=== PATIENT | female | born 1940 | race Caucasian/White ===

== ENCOUNTER 2023-12-23 15:06 | Inpatient (IN) | payer MEDICARE, OTHER ==
[~2023-12-23] VITALS: Ht 170.2 cm; Wt 59.0 kg
[~2023-12-23 15:06] MED LIST: DOCU100C36 PO; GABA-532 PO; HYDR-4384 PO; LISI-768 PO
[2023-12-23 15:49] LABS: BASOPHILS % (AUTO) 0.4 % (0.0-2.0); EOSINOPHILS # (AUTO) 0.2 K/uL (0.0-0.7); HEMATOCRIT 35 % (33-45); HEMOGLOBIN 11.5 g/dL (11.5-14.8); LYMPHOCYTES # (AUTO) 0.9 K/uL (0.8-4.8); LYMPHOCYTES % (AUTO) 10.8 % (20.0-44.0); MEAN CORPUSCULAR HEMOGLOBIN 31 PG (26.0-33.0); MEAN CORPUSCULAR HGB CONC 33 g/dl (31.0-36.0); MEAN CORPUSCULAR VOLUME 93 fL (82-100); MONOCYTES # (AUTO) 0.5 K/uL (0.1-1.30); MONOCYTES % (AUTO) 6.2 % (2.0-12.0); NEUTROPHILS # (AUTO) 6.5 K/uL (1.8-8.9); NEUTROPHILS % (AUTO) 80.6 % (43.0-81.0); PLATELET COUNT (AUTO) 250 K/uL (150-450); RED BLOOD CELL COUNT(AUTO) 3.75 MIL/uL (4.0-5.2); RED CELL DISTRIBUTION WIDTH 14.1 % (11.5-15.0)
[2023-12-23] MEDS: IV NS 0.9% 1,000 ML BAG IV ONE (15:49)
[2023-12-23] MEDS: LEVETIRACETAM (500MG) 500 MG in IV NS 0.9% 100 ML IV ONE (15:50)
[2023-12-23 15:58] LABS: CALCIUM, SERUM 9.5 mg/dL (8.5-10.1); CARBON DIOXIDE 16 mmol/L (21-32); CHLORIDE 99 mmol/L (98-107); CREATININE 1.6 mg/dL (0.6-1.3); GLUCOSE 159 mg/dL (74-106); POTASSIUM 4.5 mmol/L (3.5-5.1); SODIUM SERUM 131 mmol/L (136-145); UREA NITROGEN, BLOOD 29 mg/dL (7-18)
[2023-12-23] MEDS ORDERED: AMIN30LI2 PO (16:10)
[2023-12-23] MEDS ORDERED: CYAN-51 PO (16:10)
[2023-12-23] MEDS ORDERED: APIX2.5T PO (16:10)
[2023-12-23] MEDS ORDERED: MAGN400O6 PO (16:10)
[2023-12-23] MEDS ORDERED: MELA3TAB41 PO (16:10)
[2023-12-23] MEDS ORDERED: PANT40TA2 PO (16:10)
[2023-12-23] MEDS ORDERED: MEMA5TAB42 PO ×2 (16:10)
[2023-12-23] MEDS ORDERED: MEMA10TA56 PO (16:10)
[2023-12-23] MEDS ORDERED: LEVE100S PO (16:10)
[2023-12-23] MEDS ORDERED: ATOR10TA PO (16:10)
[2023-12-23] MEDS ORDERED: CHOL500062 PO (16:10)
[2023-12-23] MEDS ORDERED: PARO10TA86 PO (16:10)
[2023-12-23] MEDS ORDERED: QUET25TA PO (16:10)
[2023-12-23] MEDS ORDERED: METO25TA4 PO (16:10)
[2023-12-23] MEDS ORDERED: ACET-868 PO (16:10)
[2023-12-23 17:53] VITALS: BP 126/58; TEMP 98.4; O2SAT 95
[2023-12-23] MEDS ORDERED: ACETAMINOPHEN 325 MG TABLET PO PRN ×2 (18:00)
[2023-12-23] MEDS ORDERED: Z GUARD REMEDY 4 OZ OINT TP PRN (18:00)
[2023-12-23] MEDS ORDERED: MAG HYDROX/AL HYDROX/SIMETH 30 ML UDC PO PRN (18:00)
[2023-12-23] MEDS ORDERED: ONDANSETRON HCL/PF 4 MG/2 ML VIAL IVP PRN (18:00)
[2023-12-23] MEDS ORDERED: MAGNESIUM HYDROXIDE 30 ML UDC PO PRN (18:00)
[2023-12-23 18:13] LABS: APPEARANCE,URINE Clear (CLEAR); BILIRUBIN,URINE Negative (NEGATIVE); BLOOD, URINE Small Ery/uL (NEGATIVE); COLOR,URINE Other (YELLOW); KETONES,URINE Negative (NEGATIVE); LEUKOCYTE ESTERASE ,URINE Negative (NEGATIVE); NITRITE, URINE Negative (NEGATIVE); PH,URINE 5.5 (5.0-8.0); PROTEIN,URINE Trace mg/dl (NEGATIVE); UGLUCOSE Negative (NEGATIVE); UROBILINOGEN,URINE 0.2 EU/dL (0.2)
[2023-12-23 20:00] VITALS: BP 96/53; TEMP 98.1; O2SAT 93
[2023-12-23] MEDS: IV NS 0.9% 1,000 ML IV PRN (20:58)
[2023-12-23 21:12] LABS: ADD URINE CULTURE NO; BACTERIA,URINE Rare /HPF (None Seen); SQUAMOUS EPITHELIAL CELL,UR Few /HPF (None Seen); WBC,URINE 0-2 /HPF (0-3)
[2023-12-24] VITALS: BP 119/57; TEMP 98.5; O2SAT 97
[2023-12-24 04:00] VITALS: BP 115/52; TEMP 98.3; O2SAT 98
[2023-12-24] MEDS: PANTOPRAZOLE 40 MG TABLET.DR PO SCH (07:30)
[2023-12-24 08:00] VITALS: BP 95/41; TEMP 97.5; O2SAT 100
[2023-12-24 08:19] LABS: BASOPHILS % (AUTO) 0.4 % (0.0-2.0); EOSINOPHILS # (AUTO) 0.1 K/uL (0.0-0.7); EOSINOPHILS % (AUTO) 2.3 % (0.0-6.0); HEMATOCRIT 31 % (33-45); HEMOGLOBIN 10.1 g/dL (11.5-14.8); LYMPHOCYTES # (AUTO) 2.2 K/uL (0.8-4.8); LYMPHOCYTES % (AUTO) 33.4 % (20.0-44.0); MEAN CORPUSCULAR HEMOGLOBIN 30 PG (26.0-33.0); MEAN CORPUSCULAR HGB CONC 33 g/dl (31.0-36.0); MEAN CORPUSCULAR VOLUME 92 fL (82-100); MONOCYTES # (AUTO) 0.7 K/uL (0.1-1.30); NEUTROPHILS # (AUTO) 3.5 K/uL (1.8-8.9); NEUTROPHILS % (AUTO) 53.9 % (43.0-81.0); PLATELET COUNT (AUTO) 203 K/uL (150-450); RED BLOOD CELL COUNT(AUTO) 3.39 MIL/uL (4.0-5.2); WHITE BLOOD COUNT (AUTO) 6.5 K/uL (4.3-11.0)
[2023-12-24 08:25] LABS: CALCIUM, SERUM 8.6 mg/dL (8.5-10.1); CARBON DIOXIDE 23 mmol/L (21-32); CHLORIDE 109 mmol/L (98-107); CREATININE 1.2 mg/dL (0.6-1.3); GLUCOSE 85 mg/dL (74-106); MAGNESIUM 2.2 mg/dL (1.8-2.4); PHOSPHORUS 3.8 mg/dL (2.5-4.9); POTASSIUM 3.9 mmol/L (3.5-5.1); SODIUM SERUM 138 mmol/L (136-145); UREA NITROGEN, BLOOD 21 mg/dL (7-18)
[2023-12-24] MEDS: QUETIAPINE FUMARATE 25 MG TABLET PO SCH (09:00)
[2023-12-24] MEDS: APIXABAN 2.5 MG TABLET PO SCH (09:00)
[2023-12-24] MEDS: MEMANTINE HCL 5 MG TABLET PO SCH (09:00)
[2023-12-24] MEDS: LEVETIRACETAM SOL (5 ML) 100 MG/ML UDC PO SCH (09:00)
[2023-12-24] MEDS: METOPROLOL SUCCINATE 25 MG TAB.SR.24H PO SCH (09:00)
[2023-12-24] MEDS: PAROXETINE HCL 10 MG TABLET PO SCH (09:00)
[2023-12-24 12:00] VITALS: BP 90/69; TEMP 97.2; O2SAT 99
[2023-12-24] MEDS: LEVETIRACETAM (500MG) 500 MG in IV NS 0.9% 100 ML IV SCH (13:02)
[2023-12-24] MEDS ORDERED: IV NS 0.9% 500 ML IV ONE (14:46)
[2023-12-24] MEDS ORDERED: IOHEXOL-300 100 ML VIAL IV ONE (14:46)
[2023-12-24 16:00] VITALS: BP 118/47; TEMP 98.3; O2SAT 100
[2023-12-24 20:00] VITALS: BP 136/62; TEMP 98.1; O2SAT 100
[2023-12-25] VITALS (7 sets, daily range): BP systolic 102–130; BP diastolic 56–62; TEMP 97.5–98.5; O2SAT 90–100
[2023-12-25 09:24] LABS: BASOPHILS % (AUTO) 0.6 % (0.0-2.0); EOSINOPHILS # (AUTO) 0.2 K/uL (0.0-0.7); HEMATOCRIT 36 % (33-45); HEMOGLOBIN 11.4 g/dL (11.5-14.8); LYMPHOCYTES # (AUTO) 1.4 K/uL (0.8-4.8); LYMPHOCYTES % (AUTO) 26.1 % (20.0-44.0); MEAN CORPUSCULAR HEMOGLOBIN 30 PG (26.0-33.0); MEAN CORPUSCULAR HGB CONC 32 g/dl (31.0-36.0); MEAN CORPUSCULAR VOLUME 94 fL (82-100); MONOCYTES # (AUTO) 0.5 K/uL (0.1-1.30); NEUTROPHILS # (AUTO) 3.4 K/uL (1.8-8.9); NEUTROPHILS % (AUTO) 61.3 % (43.0-81.0); PLATELET COUNT (AUTO) 205 K/uL (150-450); RED BLOOD CELL COUNT(AUTO) 3.81 MIL/uL (4.0-5.2); RED CELL DISTRIBUTION WIDTH 14.5 % (11.5-15.0); WHITE BLOOD COUNT (AUTO) 5.5 K/uL (4.3-11.0)
[2023-12-25 09:45] LABS: CALCIUM, SERUM 8.8 mg/dL (8.5-10.1); CARBON DIOXIDE 16 mmol/L (21-32); CHLORIDE 113 mmol/L (98-107); CREATININE 0.9 mg/dL (0.6-1.3); GLUCOSE 68 mg/dL (74-106); POTASSIUM 3.7 mmol/L (3.5-5.1); SODIUM SERUM 143 mmol/L (136-145); UREA NITROGEN, BLOOD 15 mg/dL (7-18)
[2023-12-25] MEDS ORDERED: ALBUTEROL FS 2.5 MG/0.5 ML VIAL.NEB ONE (16:04)
[2023-12-25] MEDS ORDERED: IPRATROPIUM NEB FS 0.5 MG/2.5 ML AMPUL.NEB ONE (16:05)
[2023-12-26] VITALS: BP 125/66; TEMP 97.6; O2SAT 98
[2023-12-26 04:00] VITALS: BP 110/53; TEMP 98.1; O2SAT 99
[2023-12-26 08:15] VITALS: BP 117/61; TEMP 97.9; O2SAT 98
[2023-12-26] MEDS: LEVETIRACETAM SOL (5 ML) 100 MG/ML UDC PO SCH (08:27)
[2023-12-26 12:10] VITALS: BP 127/49; TEMP 97.7; O2SAT 99
== END 2023-12-26 13:51 | DRG 100 ==
LOC: ER 15:15 → TELE1 16:47
PROVIDERS: ADMIT Internal Medicine; ATTEND Internal Medicine
DX: G40.909 Epilepsy, unspecified, not intractable, without status epilepticus (principal); G93.41 Metabolic encephalopathy; N17.0 Acute kidney failure with tubular necrosis; F03.93 Unspecified dementia, unspecified severity, with mood disturbance; F03.92 Unspecified dementia, unspecified severity, with psychotic disturbance; E87.1 Hypo-osmolality and hyponatremia; Z66 Do not resuscitate; Z79.899 Other long term (current) drug therapy; F29 Unspecified psychosis not due to a substance or known physiological condition; Z88.8 Allergy status to other drugs, medicaments and biological substances; Z88.6 Allergy status to analgesic agent; Z91.012 Allergy to eggs; G62.9 Polyneuropathy, unspecified; F32.9 Major depressive disorder, single episode, unspecified; E86.1 Hypovolemia; M89.8X9 Other specified disorders of bone, unspecified site; D64.9 Anemia, unspecified; E86.0 Dehydration; R91.8 Other nonspecific abnormal finding of lung field; E86.9 Volume depletion, unspecified; Z79.01 Long term (current) use of anticoagulants; N18.9 Chronic kidney disease, unspecified; I12.9 Hypertensive chronic kidney disease with stage 1 through stage 4 chronic kidney disease, or unspecified chronic kidney disease
CPT/HCPCS: 36415; 70450-TC; 71045-TC; 71270-TC; 80048-TC; 81001; 83735-TC; 84100-TC; 85025-TC; 87086-TC; 92526; 92611-TC; A4223; G0378; J1953; J7030; J7040; Q9967

== ENCOUNTER 2024-03-03 15:15 | Inpatient (IN) | payer MEDICARE, OTHER ==
[~2024-03-03] VITALS: Ht 152.4 cm; Wt 59.0 kg
[~2024-03-03 15:15] MED LIST changes: +ACET-868 PO; +AMIN30LI2 PO; +APIX2.5T PO; +ATOR10TA PO; +CHOL500062 PO; +CYAN-51 PO; -DOCU100C36 PO; -GABA-532 PO; -HYDR-4384 PO; +LEVE100S PO; -LISI-768 PO; +MAGN400O6 PO; +MELA3TAB41 PO; +MEMA10TA56 PO; +MEMA5TAB42 PO; +METO25TA4 PO; +PANT40TA2 PO; +PARO10TA86 PO; +QUET25TA PO
[2024-03-03] MEDS: ACETAMINOPHEN 650 MG/SUPP.RECT RC ONE (15:30)
[2024-03-03 15:39] LABS: BASOPHILS # (AUTO) 0.1 K/uL (0.0-0.2); BASOPHILS % (AUTO) 1.1 % (0.0-2.0); EOSINOPHILS # (AUTO) 0.1 K/uL (0.0-0.7); EOSINOPHILS % (AUTO) 0.7 % (0.0-6.0); HEMATOCRIT 28 % (33-45); HEMOGLOBIN 8.7 g/dL (11.5-14.8); LYMPHOCYTES # (AUTO) 2.6 K/uL (0.8-4.8); LYMPHOCYTES % (AUTO) 35.6 % (20.0-44.0); MEAN CORPUSCULAR HEMOGLOBIN 29 PG (26.0-33.0); MEAN CORPUSCULAR HGB CONC 32 g/dl (31.0-36.0); MEAN CORPUSCULAR VOLUME 91 fL (82-100); MONOCYTES # (AUTO) 0.9 K/uL (0.1-1.30); MONOCYTES % (AUTO) 12.4 % (2.0-12.0); NEUTROPHILS # (AUTO) 3.7 K/uL (1.8-8.9); NEUTROPHILS % (AUTO) 50.2 % (43.0-81.0); PLATELET COUNT (AUTO) 222 K/uL (150-450); RED BLOOD CELL COUNT(AUTO) 3.02 MIL/uL (4.0-5.2); RED CELL DISTRIBUTION WIDTH 14.4 % (11.5-15.0); WHITE BLOOD COUNT (AUTO) 7.3 K/uL (4.3-11.0)
[2024-03-03] MEDS ORDERED: ATOR20TA PO (15:50)
[2024-03-03] MEDS ORDERED: ASPI-1169 PO (15:50)
[2024-03-03 15:52] LABS: INR 1.07 (0.91-1.10); PARTIAL THROMBOPLASTIN TIME 23.9 SEC (24.3-34.3)
[2024-03-03 16:00] LABS: LACTIC ACID 1.9 mmol/L (0.4-2.0)
[2024-03-03] MEDS: IV NS 0.9% 1,000 ML BAG IV ONE (16:00)
[2024-03-03 16:04] LABS: CALCIUM, SERUM 8.3 mg/dL (8.5-10.1); CARBON DIOXIDE 22 mmol/L (21-32); CHLORIDE 106 mmol/L (98-107); CREATININE 1.4 mg/dL (0.6-1.3); GLUCOSE 125 mg/dL (74-106); POTASSIUM 4.3 mmol/L (3.5-5.1); SODIUM SERUM 136 mmol/L (136-145); UREA NITROGEN, BLOOD 28 mg/dL (7-18)
[2024-03-03 16:09] LABS: ALANINE AMINOTRANSFERASE 31 U/L (12-78); ALBUMIN 2.7 g/dL (3.4-5.0); ALKALINE PHOSPHATASE 45 U/L (46-116); ASPARTATE AMINOTRANSFERASE 35 U/L (15-37); BILIRUBIN,DIRECT 0.1 mg/dL (0.0-0.2); BILIRUBIN,TOTAL 0.2 mg/dL (0.2-1.0); TOTAL PROTEIN, SERUM 6.1 g/dL (6.4-8.2)
[2024-03-03] MEDS: CEFEPIME 1 GM in IV D5W 50 ML IV ONE (16:15)
[2024-03-03] MEDS ORDERED: MAG HYDROX/AL HYDROX/SIMETH 30 ML UDC PO PRN (16:30)
[2024-03-03] MEDS ORDERED: ACETAMINOPHEN 325 MG TABLET PO PRN (16:30)
[2024-03-03] MEDS ORDERED: MAGNESIUM HYDROXIDE 30 ML UDC PO PRN ×2 (16:30)
[2024-03-03] MEDS: VANCOMYCIN 1 GM in IV D5W 250 ML IV ONE (16:45)
[2024-03-03] MEDS: MEMANTINE HCL 5 MG TABLET PO SCH (17:00)
[2024-03-03] MEDS: APIXABAN 2.5 MG TABLET PO SCH (17:00)
[2024-03-03] MEDS: METOPROLOL SUCCINATE 25 MG TAB.SR.24H PO SCH (17:00)
[2024-03-03] MEDS: LEVETIRACETAM SOL (5 ML) 100 MG/ML UDC PO SCH (17:00)
[2024-03-03] MEDS ORDERED: ACETAMINOPHEN 650 MG/SUPP.RECT RC ONE (17:02)
[2024-03-03] MEDS: HALOPERIDOL LACTATE INJ 5 MG/ML VIAL IM ONE (17:30)
[2024-03-03] MEDS ORDERED: HALOPERIDOL LACTATE INJ 5 MG/ML VIAL ONE (17:50)
[2024-03-03 20:00] VITALS: BP 105/58; TEMP 98.6; O2SAT 94
[2024-03-03] MEDS: IV NS 0.9% 1,000 ML IV PRN (21:19)
[2024-03-03] MEDS: ATORVASTATIN 10 MG TABLET PO SCH (21:30)
[2024-03-03] MEDS ORDERED: Medication Not On Formulary EA (Melatonin 3 MG) PO SCH (22:00)
[2024-03-04 07:05] LABS: APPEARANCE,URINE CLEAR (CLEAR); BILIRUBIN,URINE NEGATIVE (NEGATIVE); BLOOD, URINE NEGATIVE Ery/uL (NEGATIVE); COLOR,URINE YELLOW (YELLOW); KETONES,URINE NEGATIVE (NEGATIVE); LEUKOCYTE ESTERASE ,URINE 2+ (NEGATIVE); NITRITE, URINE NEGATIVE (NEGATIVE); PROTEIN,URINE NEGATIVE (NEGATIVE); UGLUCOSE NEGATIVE (NEGATIVE); UROBILINOGEN,URINE 0.2 EU/dL (0.2)
[2024-03-04 07:24] LABS: EOSINOPHILS # (AUTO) 0.1 K/uL (0.0-0.7); EOSINOPHILS % (AUTO) 3.2 % (0.0-6.0); HEMATOCRIT 24 % (33-45); HEMOGLOBIN 7.7 g/dL (11.5-14.8); LYMPHOCYTES % (AUTO) 24.7 % (20.0-44.0); MEAN CORPUSCULAR HEMOGLOBIN 29 PG (26.0-33.0); MEAN CORPUSCULAR HGB CONC 32 g/dl (31.0-36.0); MEAN CORPUSCULAR VOLUME 90 fL (82-100); MONOCYTES # (AUTO) 0.4 K/uL (0.1-1.30); MONOCYTES % (AUTO) 10.7 % (2.0-12.0); NEUTROPHILS # (AUTO) 2.4 K/uL (1.8-8.9); NEUTROPHILS % (AUTO) 60.4 % (43.0-81.0); PLATELET COUNT (AUTO) 189 K/uL (150-450); RED BLOOD CELL COUNT(AUTO) 2.65 MIL/uL (4.0-5.2); RED CELL DISTRIBUTION WIDTH 14.4 % (11.5-15.0)
[2024-03-04] MEDS: PANTOPRAZOLE 40 MG TABLET.DR PO SCH (07:30)
[2024-03-04 07:36] LABS: CALCIUM, SERUM 7.9 mg/dL (8.5-10.1); CARBON DIOXIDE 21 mmol/L (21-32); CHLORIDE 117 mmol/L (98-107); CREATININE 1.1 mg/dL (0.6-1.3); GLUCOSE 95 mg/dL (74-106); MAGNESIUM 2.1 mg/dL (1.8-2.4); PHOSPHORUS 3.3 mg/dL (2.5-4.9); SODIUM SERUM 146 mmol/L (136-145); UREA NITROGEN, BLOOD 27 mg/dL (7-18)
[2024-03-04 08:00] VITALS: BP 99/60; TEMP 98; O2SAT 100
[2024-03-04 08:07] LABS: RBC,URINE NONE SEEN /HPF (0-2)
[2024-03-04 08:08] LABS: ADD URINE CULTURE YES; SQUAMOUS EPITHELIAL CELL,UR Few /HPF (None Seen)
[2024-03-04 08:09] LABS: BACTERIA,URINE 2+ /HPF (None Seen)
[2024-03-04] MEDS: CHOLECALCIFEROL 1,000 UNIT TABLET (VIT D3) PO SCH (09:00)
[2024-03-04] MEDS: PROSOURCE / PROSTAT (PYXIS) 30 ML UDC PO SCH (09:00)
[2024-03-04] MEDS: ASPIRIN 81 MG TAB.CHEW PO SCH (09:00)
[2024-03-04] MEDS: IV 1/2NS 1000 ML 1,000 ML IV SCH (11:36)
[2024-03-04 14:46] LABS: CREATININE, URINE 42.8 MG/DL (30.0-125.0); URINE TOTAL PROTEIN 36.7 mg/dL (0-11.9)
[2024-03-04] MEDS: CEFEPIME 1 GM in IV D5W 50 ML IV SCH (15:52)
[2024-03-04] MEDS: VANCOMYCIN 750 MG in IV D5W 250 ML IV SCH (16:52)
[2024-03-04 17:00] VITALS: BP 130/80; TEMP 98.9; O2SAT 99
[2024-03-04 20:00] VITALS: BP 110/75; TEMP 98.6; O2SAT 96
[2024-03-04] MEDS: QUETIAPINE FUMARATE 25 MG TABLET PO SCH (21:54)
[2024-03-04] MEDS: ACETAMINOPHEN 325 MG TABLET PO PRN (21:55)
[2024-03-05 05:00] VITALS: BP 105/90; TEMP 98.6; O2SAT 98
[2024-03-05 07:07] LABS: BASOPHILS % (AUTO) 0.8 % (0.0-2.0); EOSINOPHILS # (AUTO) 0.3 K/uL (0.0-0.7); EOSINOPHILS % (AUTO) 8.3 % (0.0-6.0); HEMATOCRIT 21 % (33-45); HEMOGLOBIN 7.1 g/dL (11.5-14.8); LYMPHOCYTES % (AUTO) 30.8 % (20.0-44.0); MEAN CORPUSCULAR HEMOGLOBIN 30 PG (26.0-33.0); MEAN CORPUSCULAR HGB CONC 34 g/dl (31.0-36.0); MEAN CORPUSCULAR VOLUME 90 fL (82-100); MONOCYTES # (AUTO) 0.4 K/uL (0.1-1.30); MONOCYTES % (AUTO) 10.7 % (2.0-12.0); NEUTROPHILS # (AUTO) 1.7 K/uL (1.8-8.9); NEUTROPHILS % (AUTO) 49.4 % (43.0-81.0); PLATELET COUNT (AUTO) 161 K/uL (150-450); RED BLOOD CELL COUNT(AUTO) 2.37 MIL/uL (4.0-5.2); RED CELL DISTRIBUTION WIDTH 14.4 % (11.5-15.0); WHITE BLOOD COUNT (AUTO) 3.4 K/uL (4.3-11.0)
[2024-03-05 07:38] LABS: CALCIUM, SERUM 8.2 mg/dL (8.5-10.1); CARBON DIOXIDE 19 mmol/L (21-32); CHLORIDE 117 mmol/L (98-107); CREATININE 1.3 mg/dL (0.6-1.3); GLUCOSE 94 mg/dL (74-106); POTASSIUM 3.5 mmol/L (3.5-5.1); SODIUM SERUM 144 mmol/L (136-145); UREA NITROGEN, BLOOD 21 mg/dL (7-18)
[2024-03-05] MEDS: LEVETIRACETAM (250 MG) 250 MG TABLET PO SCH (09:25)
[2024-03-05] MEDS: OLANZAPINE 10 MG VIAL IM ONE (14:05)
[2024-03-05] MEDS: SOD FERRIC GLUC 125 MG in IV NS 0.9% 100 ML IV SCH (16:19)
[2024-03-05] MEDS: IV 1/2NS 1000 ML 1,000 ML IV PRN (17:06)
[2024-03-05 20:24] VITALS: BP 106/80; TEMP 97.5; O2SAT 97
[2024-03-05 23:20] VITALS: BP 106/80; TEMP 97.5; O2SAT 97
[2024-03-06 08:00] VITALS: BP 100/86; TEMP 98.8; O2SAT 98
[2024-03-06 13:35] LABS: CALCIUM, SERUM 8.8 mg/dL (8.5-10.1); CARBON DIOXIDE 21 mmol/L (21-32); CHLORIDE 119 mmol/L (98-107); CREATININE 1.2 mg/dL (0.6-1.3); GLUCOSE 85 mg/dL (74-106); SODIUM SERUM 148 mmol/L (136-145); UREA NITROGEN, BLOOD 12 mg/dL (7-18)
[2024-03-06 13:52] LABS: BASOPHILS % (AUTO) 0.8 % (0.0-2.0); EOSINOPHILS # (AUTO) 0.3 K/uL (0.0-0.7); EOSINOPHILS % (AUTO) 7.2 % (0.0-6.0); HEMATOCRIT 25 % (33-45); HEMOGLOBIN 7.8 g/dL (11.5-14.8); LYMPHOCYTES # (AUTO) 1.3 K/uL (0.8-4.8); LYMPHOCYTES % (AUTO) 34.4 % (20.0-44.0); MEAN CORPUSCULAR HEMOGLOBIN 29 PG (26.0-33.0); MEAN CORPUSCULAR HGB CONC 32 g/dl (31.0-36.0); MEAN CORPUSCULAR VOLUME 91 fL (82-100); MONOCYTES # (AUTO) 0.4 K/uL (0.1-1.30); MONOCYTES % (AUTO) 11.8 % (2.0-12.0); NEUTROPHILS # (AUTO) 1.7 K/uL (1.8-8.9); NEUTROPHILS % (AUTO) 45.8 % (43.0-81.0); PLATELET COUNT (AUTO) 212 K/uL (150-450); RED BLOOD CELL COUNT(AUTO) 2.69 MIL/uL (4.0-5.2); RED CELL DISTRIBUTION WIDTH 14.7 % (11.5-15.0); WHITE BLOOD COUNT (AUTO) 3.7 K/uL (4.3-11.0)
[2024-03-06 16:00] VITALS: BP 133/65; TEMP 99.3; O2SAT 100
[2024-03-06 19:40] VITALS: BP 124/91; TEMP 98.6; O2SAT 96
[2024-03-07 00:07] VITALS: BP 124/91; TEMP 98.6; O2SAT 96
[2024-03-07 04:55] VITALS: BP 127/55; TEMP 98.1; O2SAT 97
[2024-03-07] MEDS: VANCOMYCIN 750 MG in IV D5W 250 ML IV SCH (05:09)
[2024-03-07 05:11] VITALS: BP 127/55; TEMP 98; O2SAT 97
[2024-03-07 08:00] VITALS: BP 110/58; TEMP 98; O2SAT 97
[2024-03-07 11:40] LABS: CALCIUM, SERUM 8.9 mg/dL (8.5-10.1); CARBON DIOXIDE 18 mmol/L (21-32); CHLORIDE 117 mmol/L (98-107); CREATININE 1.1 mg/dL (0.6-1.3); GLUCOSE 71 mg/dL (74-106); POTASSIUM 3.8 mmol/L (3.5-5.1); SODIUM SERUM 147 mmol/L (136-145); UREA NITROGEN, BLOOD 10 mg/dL (7-18)
[2024-03-07] MEDS ORDERED: LEVETIRACETAM (500MG) 1,000 MG in PREMIX 90 EA IV SCH (15:30)
[2024-03-07] MEDS: LEVETIRACETAM (500MG) 1,000 MG in IV NS 0.9% 90 ML IV SCH (16:20)
[2024-03-07 17:00] VITALS: BP 118/61; TEMP 98.1; O2SAT 95
[2024-03-07 20:00] VITALS: BP 125/69; TEMP 98.6; O2SAT 98
[2024-03-08 08:00] VITALS: BP 107/50; TEMP 98.4; O2SAT 96
[2024-03-08] MEDS ORDERED: FERR325T23 PO (10:15)
[2024-03-08 11:38] LABS: BASOPHILS % (AUTO) 0.9 % (0.0-2.0); EOSINOPHILS # (AUTO) 0.1 K/uL (0.0-0.7); EOSINOPHILS % (AUTO) 2.8 % (0.0-6.0); LYMPHOCYTES # (AUTO) 1.3 K/uL (0.8-4.8); LYMPHOCYTES % (AUTO) 32.1 % (20.0-44.0); MEAN CORPUSCULAR HEMOGLOBIN 29 PG (26.0-33.0); MEAN CORPUSCULAR HGB CONC 31 g/dl (31.0-36.0); MEAN CORPUSCULAR VOLUME 92 fL (82-100); MONOCYTES # (AUTO) 0.5 K/uL (0.1-1.30); MONOCYTES % (AUTO) 13.5 % (2.0-12.0); NEUTROPHILS # (AUTO) 2.1 K/uL (1.8-8.9); NEUTROPHILS % (AUTO) 50.7 % (43.0-81.0); PLATELET COUNT (AUTO) 177 K/uL (150-450); RED BLOOD CELL COUNT(AUTO) 2.48 MIL/uL (4.0-5.2); RED CELL DISTRIBUTION WIDTH 14.9 % (11.5-15.0)
[2024-03-08 11:43] LABS: CALCIUM, SERUM 8.5 mg/dL (8.5-10.1); CARBON DIOXIDE 21 mmol/L (21-32); CHLORIDE 116 mmol/L (98-107); CREATININE 1.2 mg/dL (0.6-1.3); GLUCOSE 187 mg/dL (74-106); MAGNESIUM 1.9 mg/dL (1.8-2.4); PHOSPHORUS 2.5 mg/dL (2.5-4.9); POTASSIUM 3.1 mmol/L (3.5-5.1); SODIUM SERUM 145 mmol/L (136-145); UREA NITROGEN, BLOOD 9 mg/dL (7-18)
[2024-03-08 11:51] LABS: HEMATOCRIT 23 % (33-45); HEMOGLOBIN 7.1 g/dL (11.5-14.8)
[2024-03-08] MEDS: POTASSIUM CHLORIDE 20 MEQ POWDER PACKET NG SCH (12:46)
[2024-03-08 20:00] VITALS: BP 109/76; TEMP 98.1; O2SAT 96
[2024-03-08] MEDS: MIDODRINE HCL (5MG) 5 MG TABLET PO SCH (21:14)
[2024-03-08] MEDS: Z GUARD REMEDY 4 OZ OINT TP PRN (21:15)
[2024-03-08] MEDS: LEVETIRACETAM (250 MG) 250 MG TABLET PO SCH (21:18)
[2024-03-09 07:00] VITALS: BP 116/62; TEMP 97.5; O2SAT 99
[2024-03-09 10:11] LABS: BASOPHILS # (AUTO) 0.1 K/uL (0.0-0.2); EOSINOPHILS # (AUTO) 0.4 K/uL (0.0-0.7); EOSINOPHILS % (AUTO) 6.8 % (0.0-6.0); HEMATOCRIT 23 % (33-45); HEMOGLOBIN 7.2 g/dL (11.5-14.8); LYMPHOCYTES # (AUTO) 1.7 K/uL (0.8-4.8); MEAN CORPUSCULAR HEMOGLOBIN 29 PG (26.0-33.0); MEAN CORPUSCULAR HGB CONC 31 g/dl (31.0-36.0); MEAN CORPUSCULAR VOLUME 93 fL (82-100); MONOCYTES # (AUTO) 0.6 K/uL (0.1-1.30); MONOCYTES % (AUTO) 11.4 % (2.0-12.0); NEUTROPHILS # (AUTO) 2.7 K/uL (1.8-8.9); NEUTROPHILS % (AUTO) 49.8 % (43.0-81.0); PLATELET COUNT (AUTO) 189 K/uL (150-450); RED BLOOD CELL COUNT(AUTO) 2.51 MIL/uL (4.0-5.2); RED CELL DISTRIBUTION WIDTH 15.5 % (11.5-15.0); WHITE BLOOD COUNT (AUTO) 5.5 K/uL (4.3-11.0)
[2024-03-09 10:20] LABS: CALCIUM, SERUM 9.4 mg/dL (8.5-10.1); CARBON DIOXIDE 21 mmol/L (21-32); CHLORIDE 116 mmol/L (98-107); CREATININE 1.3 mg/dL (0.6-1.3); GLUCOSE 166 mg/dL (74-106); POTASSIUM 3.7 mmol/L (3.5-5.1); SODIUM SERUM 144 mmol/L (136-145); UREA NITROGEN, BLOOD 9 mg/dL (7-18)
[2024-03-09 16:00] VITALS: BP 109/59; TEMP 97.7; O2SAT 100
== END 2024-03-09 17:20 | DRG 871 ==
LOC: ER 15:22 → MED 17:56
PROVIDERS: ADMIT Nurse Practitioner Acute Care; ATTEND Student in an Organized Health Care Education/Training Program
DX: A41.9 Sepsis, unspecified organism (principal); G93.41 Metabolic encephalopathy; N17.0 Acute kidney failure with tubular necrosis; D68.59 Other primary thrombophilia; E44.0 Moderate protein-calorie malnutrition; E87.0 Hyperosmolality and hypernatremia; N39.0 Urinary tract infection, site not specified; E86.0 Dehydration; Z51.5 Encounter for palliative care; Z66 Do not resuscitate; K21.9 Gastro-esophageal reflux disease without esophagitis; Z87.440 Personal history of urinary (tract) infections; F29 Unspecified psychosis not due to a substance or known physiological condition; Z88.6 Allergy status to analgesic agent; Z88.8 Allergy status to other drugs, medicaments and biological substances; Z91.012 Allergy to eggs; Z79.82 Long term (current) use of aspirin; Z79.01 Long term (current) use of anticoagulants; Z79.899 Other long term (current) drug therapy; R13.10 Dysphagia, unspecified; I48.0 Paroxysmal atrial fibrillation; G40.909 Epilepsy, unspecified, not intractable, without status epilepticus; Z74.09 Other reduced mobility; E88.09 Other disorders of plasma-protein metabolism, not elsewhere classified; D63.8 Anemia in other chronic diseases classified elsewhere; F03.90 Unspecified dementia, unspecified severity, without behavioral disturbance, psychotic disturbance, mood disturbance, and anxiety; N18.9 Chronic kidney disease, unspecified; I12.9 Hypertensive chronic kidney disease with stage 1 through stage 4 chronic kidney disease, or unspecified chronic kidney disease; M89.8X9 Other specified disorders of bone, unspecified site; Z93.3 Colostomy status; E86.9 Volume depletion, unspecified
CPT/HCPCS: 36415; 71045-TC; 80048-TC; 80076-TC; 80202-TC; 81001; 82570-TC; 82962-TC; 83605-TC; 83735-TC; 84100-TC; 84300-TC; 84484-TC; 85025-TC; 85730-TC; 87040-TC; 87081-TC; 87086-TC; 92526; 92611-TC; A4216; A4223; G0378; J0692; J1630; J1953; J2916; J3370; J3371; J3490; J7030; J7042; J7060

== ENCOUNTER 2024-05-16 19:39 | Inpatient (IN) | payer MEDICARE, OTHER ==
[~2024-05-16] VITALS: Ht 167.6 cm; Wt 58.1 kg
[~2024-05-16 19:39] MED LIST changes: +ASPI-1169 PO; -ATOR10TA PO; +ATOR20TA PO; -CYAN-51 PO; +FERR325T23 PO; -MEMA5TAB42 PO; -PARO10TA86 PO
[2024-05-16 20:24] LABS: BASOPHILS % (AUTO) 0.6 % (0.0-2.0); EOSINOPHILS # (AUTO) 0.1 K/uL (0.0-0.7); EOSINOPHILS % (AUTO) 2.3 % (0.0-6.0); HEMATOCRIT 38 % (33-45); HEMOGLOBIN 12.1 g/dL (11.5-14.8); LYMPHOCYTES % (AUTO) 32.6 % (20.0-44.0); MEAN CORPUSCULAR HEMOGLOBIN 30 PG (26.0-33.0); MEAN CORPUSCULAR HGB CONC 32 g/dl (31.0-36.0); MEAN CORPUSCULAR VOLUME 95 fL (82-100); MONOCYTES # (AUTO) 0.4 K/uL (0.1-1.30); NEUTROPHILS # (AUTO) 3.5 K/uL (1.8-8.9); NEUTROPHILS % (AUTO) 57.5 % (43.0-81.0); PLATELET COUNT (AUTO) 221 K/uL (150-450); RED BLOOD CELL COUNT(AUTO) 4.02 MIL/uL (4.0-5.2); RED CELL DISTRIBUTION WIDTH 15.3 % (11.5-15.0)
[2024-05-16 20:46] LABS: CARBON DIOXIDE 19 mmol/L (21-32); CHLORIDE 108 mmol/L (98-107); CREATININE 1.4 mg/dL (0.6-1.3); GLUCOSE 142 mg/dL (74-106); POTASSIUM 5.5 mmol/L (3.5-5.1); SODIUM SERUM 141 mmol/L (136-145); UREA NITROGEN, BLOOD 23 mg/dL (7-18)
[2024-05-16 20:59] LABS: ALANINE AMINOTRANSFERASE 32 U/L (12-78); ALBUMIN 3.6 g/dL (3.4-5.0); ALKALINE PHOSPHATASE 54 U/L (46-116); ASPARTATE AMINOTRANSFERASE 35 U/L (15-37); BILIRUBIN,DIRECT 0.1 mg/dL (0.0-0.2); BILIRUBIN,TOTAL 0.2 mg/dL (0.2-1.0); NT-PRO BNP 142 pg/mL (0-125); TOTAL PROTEIN, SERUM 7.2 g/dL (6.4-8.2)
[2024-05-16] MEDS ORDERED: LEVETIRACETAM (500MG) 500 MG/5 ML VIAL IV ONE ×2 (21:06→22:12)
[2024-05-16] MEDS ORDERED: LORAZEPAM INJ 2 MG/ML VIAL ONE (21:07)
[2024-05-16] MEDS: LEVETIRACETAM (500MG) 1,000 MG in IV NS 0.9% 90 ML IV SCH (21:08)
[2024-05-16] MEDS: IV NS 0.9% 1,000 ML BAG IV ONE (21:08)
[2024-05-16] MEDS: LORAZEPAM INJ 2 MG/ML VIAL IV ONE (21:08)
[2024-05-16] MEDS: SODIUM POLYSTYRENE SULFONATE 15 G/60 ML BOTTLE RC ONE (21:50)
[2024-05-16] MEDS: SODIUM BICARBONATE SYR 50 MEQ/50 ML DISP.SYRIN IV ONE (21:50)
[2024-05-16] MEDS ORDERED: ONDANSETRON HCL/PF 4 MG/2 ML VIAL IVP PRN (22:00)
[2024-05-16] MEDS ORDERED: MAG HYDROX/AL HYDROX/SIMETH 30 ML UDC PO PRN (22:00)
[2024-05-16] MEDS ORDERED: LORAZEPAM INJ 2 MG/ML VIAL IV PRN (22:00)
[2024-05-16] MEDS ORDERED: MAGNESIUM HYDROXIDE 30 ML UDC PO PRN (22:00)
[2024-05-16] MEDS ORDERED: Z GUARD REMEDY 4 OZ OINT TP PRN (22:00)
[2024-05-16] MEDS: ATORVASTATIN 10 MG TABLET PO SCH (23:00)
[2024-05-16] MEDS: ALBUTEROL FS 2.5 MG/3 ML VIAL.NEB NEB ONE (23:49)
[2024-05-17] VITALS: BP 124/96; TEMP 100.4; O2SAT 97
[2024-05-17] MEDS: IV NS 0.9% 1,000 ML IV PRN ×2 (00:02→00:55)
[2024-05-17] MEDS: ACETAMINOPHEN 650 MG/SUPP.RECT RC PRN (00:57)
[2024-05-17] MEDS ORDERED: CEFTRIAXONE 1GM BAG (ER ONLY) 50 ML IV ONE (03:46)
[2024-05-17] MEDS: CEFTRIAXONE 1 G in IV D5W 50 ML IV SCH (03:48)
[2024-05-17 04:00] VITALS: BP 102/85; TEMP 98.9; O2SAT 97
[2024-05-17] MEDS: PANTOPRAZOLE 40 MG TABLET.DR PO SCH (07:30)
[2024-05-17 07:52] LABS: BASOPHILS % (AUTO) 0.3 % (0.0-2.0); EOSINOPHILS % (AUTO) 0.1 % (0.0-6.0); HEMATOCRIT 35 % (33-45); HEMOGLOBIN 11.4 g/dL (11.5-14.8); LYMPHOCYTES # (AUTO) 1.1 K/uL (0.8-4.8); LYMPHOCYTES % (AUTO) 15.6 % (20.0-44.0); MEAN CORPUSCULAR HEMOGLOBIN 31 PG (26.0-33.0); MEAN CORPUSCULAR HGB CONC 33 g/dl (31.0-36.0); MEAN CORPUSCULAR VOLUME 95 fL (82-100); MONOCYTES # (AUTO) 0.6 K/uL (0.1-1.30); MONOCYTES % (AUTO) 8.4 % (2.0-12.0); NEUTROPHILS # (AUTO) 5.3 K/uL (1.8-8.9); NEUTROPHILS % (AUTO) 75.6 % (43.0-81.0); PLATELET COUNT (AUTO) 174 K/uL (150-450); RED BLOOD CELL COUNT(AUTO) 3.69 MIL/uL (4.0-5.2); RED CELL DISTRIBUTION WIDTH 14.9 % (11.5-15.0)
[2024-05-17 07:56] LABS: CALCIUM, SERUM 8.5 mg/dL (8.5-10.1); CREATININE 1.2 mg/dL (0.6-1.3); MAGNESIUM 2.1 mg/dL (1.8-2.4); PHOSPHORUS 3.4 mg/dL (2.5-4.9); POTASSIUM 3.7 mmol/L (3.5-5.1)
[2024-05-17 08:00] VITALS: BP 117/74; TEMP 98.3; O2SAT 94
[2024-05-17] MEDS: APIXABAN 2.5 MG TABLET PO SCH (08:06)
[2024-05-17] MEDS: ASPIRIN 81 MG TAB.CHEW PO SCH (08:06)
[2024-05-17] MEDS: METOPROLOL SUCCINATE 25 MG TAB.SR.24H PO SCH (08:07)
[2024-05-17] MEDS: PROSTAT (PYXIS) 30 ML UDC PO SCH (08:07)
[2024-05-17] MEDS: FERROUS SULFATE (325 MG) 325 MG/TAB TABLET PO SCH (08:07)
[2024-05-17] MEDS: MEMANTINE HCL 5 MG TABLET PO SCH (08:07)
[2024-05-17] MEDS: CHOLECALCIFEROL 1,000 UNIT TABLET (VIT D3) PO SCH (08:07)
[2024-05-17] MEDS: LEVETIRACETAM (500MG) 500 MG in IV NS 0.9% 100 ML IV SCH (09:08)
[2024-05-17] MEDS ORDERED: FERR325T28 PO (09:11)
[2024-05-17] MEDS ORDERED: METO25TA6 PO (09:11)
[2024-05-17] MEDS ORDERED: MIDO5TAB4 PO (09:11)
[2024-05-17] MEDS ORDERED: ASCO-352 PO (09:11)
[2024-05-17 12:00] VITALS: BP 102/76; TEMP 98.1; O2SAT 95
[2024-05-17 16:00] VITALS: BP 115/75; TEMP 98.5; O2SAT 94
[2024-05-17 20:21] LABS: APPEARANCE,URINE CLEAR (CLEAR); BILIRUBIN,URINE NEGATIVE (NEGATIVE); BLOOD, URINE NEGATIVE Ery/uL (NEGATIVE); COLOR,URINE YELLOW (YELLOW); KETONES,URINE NEGATIVE (NEGATIVE); LEUKOCYTE ESTERASE ,URINE NEGATIVE (NEGATIVE); NITRITE, URINE NEGATIVE (NEGATIVE); PH,URINE 5.5 (5.0-8.0); PROTEIN,URINE NEGATIVE (NEGATIVE); UGLUCOSE NEGATIVE (NEGATIVE); UROBILINOGEN,URINE 0.2 EU/dL (0.2)
[2024-05-17 20:44] VITALS: BP 113/61; TEMP 98.1; O2SAT 97
[2024-05-17 20:50] LABS: CREATININE, URINE 93.3 MG/DL (30.0-125.0); URINE TOTAL PROTEIN 45.1 mg/dL (0-11.9)
[2024-05-17 20:53] LABS: EOSINOPHIL,URINE None Seen
[2024-05-17] MEDS: LEVETIRACETAM SOL (5 ML) 100 MG/ML UDC PO SCH (23:20)
[2024-05-18 00:07] VITALS: BP 104/76; O2SAT 97
[2024-05-18] MEDS: ADENOSINE 6 MG/2 ML VIAL IVP ONE (00:32)
[2024-05-18 04:15] VITALS: BP 104/56; TEMP 98.8; O2SAT 99
[2024-05-18 08:00] VITALS: BP 111/64; TEMP 97.5; O2SAT 100
[2024-05-18] MEDS ORDERED: CEFTRIAXONE 1 G in IV D5W 50 ML IV SCH (09:00)
[2024-05-18] MEDS: DIGOXIN INJ 0.5 MG/2 ML AMPUL IV SCH (10:11)
[2024-05-18 12:00] VITALS: BP 103/42; TEMP 97.7; O2SAT 100
[2024-05-18 16:00] VITALS: BP 123/92; TEMP 97.7; O2SAT 98
[2024-05-18 20:00] VITALS: BP 122/68; TEMP 99; O2SAT 99
[2024-05-18] MEDS: CEFTRIAXONE 1 G in IV D5W 50 ML IV SCH (22:45)
[2024-05-19 04:00] VITALS: BP 104/53; TEMP 98.1; O2SAT 100
[2024-05-19 08:00] VITALS: BP 137/57; TEMP 97.7; O2SAT 100
[2024-05-19 12:00] VITALS: BP 137/57; TEMP 97.7; O2SAT 100
[2024-05-19 16:11] VITALS: BP 124/40; TEMP 98.2; O2SAT 98
[2024-05-19 20:00] VITALS: BP 120/75; TEMP 99.7; O2SAT 97
[2024-05-19 23:00] VITALS: TEMP 97.9
[2024-05-20 04:00] VITALS: BP 119/80; TEMP 98.2; O2SAT 99
[2024-05-20 08:31] VITALS: BP 131/66
[2024-05-20] MEDS: PROSOURCE / PROSTAT (PYXIS) 30 ML UDC PO SCH (08:52)
[2024-05-20] MEDS: ACETAMINOPHEN 325 MG TABLET PO PRN (09:25)
== END 2024-05-20 13:55 | DRG 100 ==
LOC: ER 19:41 → TELE1 22:11 → MEDSG1 05-18 12:55
PROVIDERS: ADMIT Nurse Practitioner Acute Care; ATTEND Internal Medicine
DX: G40.909 Epilepsy, unspecified, not intractable, without status epilepticus (principal); G92.8 Other toxic encephalopathy; N17.0 Acute kidney failure with tubular necrosis; I48.20 Chronic atrial fibrillation, unspecified; D68.59 Other primary thrombophilia; N39.0 Urinary tract infection, site not specified; E87.20 Acidosis, unspecified; E86.0 Dehydration; I12.9 Hypertensive chronic kidney disease with stage 1 through stage 4 chronic kidney disease, or unspecified chronic kidney disease; N18.9 Chronic kidney disease, unspecified; E87.5 Hyperkalemia; F03.90 Unspecified dementia, unspecified severity, without behavioral disturbance, psychotic disturbance, mood disturbance, and anxiety; K21.9 Gastro-esophageal reflux disease without esophagitis; F29 Unspecified psychosis not due to a substance or known physiological condition; F32.A Depression, unspecified; F43.10 Post-traumatic stress disorder, unspecified; X58.XXXA Exposure to other specified factors, initial encounter; R13.10 Dysphagia, unspecified; Y92.9 Unspecified place or not applicable; M89.8X9 Other specified disorders of bone, unspecified site; Z66 Do not resuscitate; Z88.6 Allergy status to analgesic agent; Z91.012 Allergy to eggs; Z88.8 Allergy status to other drugs, medicaments and biological substances; Z79.82 Long term (current) use of aspirin; Z79.01 Long term (current) use of anticoagulants; Z74.01 Bed confinement status; Z79.899 Other long term (current) drug therapy; Z93.3 Colostomy status; B96.89 Other specified bacterial agents as the cause of diseases classified elsewhere; E78.5 Hyperlipidemia, unspecified; E86.1 Hypovolemia; D64.9 Anemia, unspecified; E86.9 Volume depletion, unspecified
CPT/HCPCS: 36415; 70450-TC; 71045-TC; 80048-TC; 80076-TC; 80177; 82570-TC; 83735-TC; 83880; 84100-TC; 84300-TC; 84484-TC; 85025-TC; 87081-TC; 87086-TC; 92526; 92611-TC; 93307-TC; A4223; G0378; J0696; J1160; J1953; J2060; J2405; J3490; J7030; J7060